=== PATIENT | female | born 1945 | race Hispanic/Latino ===

== ENCOUNTER 2017-01-26 10:01 | Outpatient (CLI) | payer MEDICARE ==
--- NOTE | 2017-01-26 10:55 | XRay Report ---
Pelvis and bilateral hips: History: Hip bursitis. Findings: No lytic or blastic lesions a fractured pelvis. No definite bony or articular abnormality noted right and left hip joint. Mild arthritic changes cannot be excluded. No periosteal reaction or soft tissue calcification. Impression: Findings as described.
--- NOTE | 2017-01-26 10:57 | XRay Report ---
Lumbar spine 4 views: History: Back pain. Findings: Scoliosis and lumbar spine with convexity to the right. Normal height of vertebral bodies. Dictated type of intervertebral disc spaces. Sclerotic adjacent articular surfaces with peripheral osteophyte suggestive severe degenerative changes. Calcified abdominal aorta without definite evidence of aneurysm though possibly be at the level of L3 cannot be entirely ruled out. No evidence of acute fracture. Impression: Severe degenerative changes lumbar spine. Suspicion of aneurysm of abdominal aorta at the level L3. Sonographic examination is recommended.
== END 2017-01-26 10:02 | disposition home or self-care (01) ==
LOC: SPVIMAG 10:01
PROVIDERS: ATTEND Internal Medicine
DX: M47.896 Other spondylosis, lumbar region (principal); M70.71 Other bursitis of hip, right hip; M25.751 Osteophyte, right hip
CPT/HCPCS: 72110; 73521